=== PATIENT | male | born 1960 | race Caucasian/White ===

== ENCOUNTER 2025-04-27 05:13 | Day surgery (SDC) | payer OTHER, SELFPAY ==
[2025-04-02 10:43] LABS: Hematocrit 48.4 % (40-54); Hemoglobin 16.4 g/dL (13.0-16.5); Immature Granulocytes Count 0.040 X10^3/uL (0.0-0.0); Mean Corp Hgb Conc 33.9 g/dL (32-36); Mean Corpuscular Volume 92.5 fL (80-94); Mean Platelet Vol. 9.3 fl (6.2-12.0); NRBC Flagged by Analyzer 0 % (0-5); Platelet Count 317 K/mm3 (150-450); RBC Distribution Width CV 11.9 % (11.6-14.6); RBC Distribution Width SD 40.8 fl (35.1-43.9); Red Blood Count 5.23 M/mm3 (4.6-6.2); White Blood Count 9.6 K/mm3 (4.4-11.0)
[2025-04-02 11:24] LABS: Magnesium 2.5 mg/dL (1.5-2.2)
[2025-04-02 11:28] LABS: Albumin, Serum 4.5 g/dL (3.4-4.8); Anion Gap 11 (5-15); BUN 16 mg/dL (4-19); BUN/Creat Ratio 15.0 RATIO (10-20); Calcium,Total 9.8 mg/dL (7.6-11.0); Carbon Dioxide 24.5 mmol/L (21.0-32.0); Chloride 105 mmol/L (98-108); Glucose 97 mg/dL (70-99); Potassium 4.5 mmol/L (3.3-5.1)
--- NOTE | 2025-04-22 17:09 | HP.PCM_ITS ---
History and Physical History and Physical? Patient Name: Javi Echevarria : 1960From:? LAURA PERALTA PA-C? DATE OF PRE-OPERATIVE EXAM: 04/22/2025 DATE OF SURGERY:? 04/27/2025 SCHEDULED PROCEDURE:? Direct anterior right total hip arthroplasty HISTORY OF PRESENT ILLNESS: Preoperative history and physical exam was performed on April 22, 2025.? This is a 65-year-old male who has had ongoing pain for the past 5-6 months.? Pain has been going on in the groin radiating into the thigh and down the leg.? He does experience some sciatica and buttock pain.? Pain can reach 10/10 at times.? He has been using occasional cane.? His pain has been constant.? Pain is increased with lying down and walking.? He has difficulty with activities of daily living including housework and leisure activities that require walking.? Patient has attempted ibuprofen with no significant relief.? Patient did have an MRI which did confirm avascular necrosis.? There is known history of substantial alcohol use in the past.? Patient has obtain surgical clearance from the primary care provider Dr. Simona Lowe.? Patient has medical history for hypertension, hypercholesterolemia, posttraumatic stress disorder, anxiety area denies past history of DVT or pulmonary embolism.? Patient has been following our nutrition protocol.? After failing conservative measures and discussing all treatment options was Dr. Rey Lugo, the patient does wish to proceed with a direct anterior right total hip arthroplasty. REVIEW OF SYSTEMS: Review Of Systems: Constitutional: Denies change in appetite, fever and weight change. Cardiovasular: Denies chest pain, heart murmur and irregular heartbeat. Respiratory: Denies cough, pneumonia, shortness of breath, tuberculosis and wheezing. Gastrointestinal: Denies constipation, diarrhea, heartburn, nausea, rectal itching, bloody stools and vomiting. Genitourinary: Denies urinary symptoms. Musculoskeletal: Reports gait disturbance and pain, but denies leg swelling, trouble walking and weakness. Skin: Denies Raynaud's, history of shingles and tattoo. Neurological: Reports numbness/tingling but denies ambulatory dysfunction, dizziness and tremor. Psychiatric: Reports history alcohol abuse disorder, anxiety and PTSD, but denies insomnia and stress Hematologic/Lymphatic: Denies anemia, bleeding/bruising tendency and past transfusion. Reviewed and updated. PAST MEDICAL HISTORY: Advance Care Plan: No Advance Directives Effective Date: 02/13/2024 Past Medical History: Medical Problems: Arthritis, High Blood Pressure, Hypercholesterolemia, Covid-19 Vaccine, Posttraumatic stress disorder, Anxiety ostenoecrosis - previous alcohol use?? Accidents: Sports Related Injury - (2003) & (2009) knee arthroscopy Surgical Hx: Kidney Stones - (2009) Knee Arthroscopy Lt, Knee Arthroscopy Rt Knee Replacement LT - (05/06/2024) ROBOTIC ASSISTED DR. LUGO AT [facility] Anesthesia Complications: None Assistive Devices: Glasses, Cane Reviewed and updated. SOCIAL HISTORY: Social History: Marital: .Occupation: Retired.Work Status: Retired.Hand Dominance: Right-handed. Personal Habits:? Cigarette Use: Former.Smokeless Tobacco: Current Smokeless Tobacco User.E-Cigarette Use: Never used.Alcohol: Currently consumes alcohol - in remission from alcohol abuse .Drug Use: Denies Use.Enjoy Exercising: Exercises 1-3 x/month. Reviewed and updated. VITALS: Ht: 68.5 Wt: 194lb Wt k.998 BMI: 29.1 BP: 128/70 Pulse: 77 Resp: 17 T: 97.7 T: 36.5C Pain Level: 6/10 O2SatR: 97 ALLERGIES: No Known Drug Allergy? MEDICATIONS: Oxycodone HCL 5 mg 1-2 tablets by mouth every 4 hours as needed, Ondansetron HCL 4 mg 1 tablet by mouth every 8 hours as needed for nausea, Famotidine 20 mg 1 tablet by mouth every day, Mupirocin 2 % use qtip and apply inside each nostril twice a day until the day of surgery, Meloxicam 7.5 mg 1 by mouth twice a day, Beet Root 500 mg daily, Magnesium 300 mg daily, Vitamin D 50 mcg (1999 Ut) 1 by mouth 5 days a week, Amlodipine Besylate 10 mg 1 by mouth every day PRE-OP EXAM:? General appearance:NORMAL? ? ? Other: Eyes: Conjunctivae and lids: NORMAL? Pupils: ERR Ears, Nose, Mouth, and Throat: NORMAL? Other: Inspection of lips, teeth and gums: NORMAL? ?Other: Neck: Examination of neck: no masses noted. Respiratory: Assessment of respiratory effort: NORMAL? ?Other: ?Auscultation of lungs: clear to auscultation no wheezes, rhonchi or rales. Cardiovascular:? Auscultation of heart: regular rate and rhythm, no murmurs, gallops or rubs. PHYSICAL EXAMINATION: Patient walks with an antalgic gait favoring his right side.? Right hip is without erythema.? Patient has 15 contracture right hip.? Internal rotation neutral, external rotation 15, flexion approximately 80.? 3/5 strength secondary to pain.? Tenderness to palpation along the lateral hip greater trochanteric region.? Sensation intact to light touch. IMAGING STUDIES: Previous x-rays of the right hip reveal joint space narrowing, subchondral sclerosis, osteophyte formation consistent with severe stage IV bone on bone erosive osteoarthritis.? There is some collapse of the femoral head with characteristics concerning for avascular necrosis in the weightbearing area.? MRI was ordered which did confirm avascular necrosis likely related to substantial previous alcohol use. IMPRESSION: 1.? Right hip osteoarthritis with avascular necrosis 2.? Hypertension 3.? Hypercholesterolemia 4.? Posttraumatic stress disorder 5.? Anxiety 6.? Overweight with BMI 29.1 PLAN: Dr. Rey Lugo did discuss and review with the patient all treatment options including surgical versus nonsurgical options.? I will continue plan established by Dr. Rey Lugo.? Patient does wish to proceed with the above-stated procedure.? Potential risks, benefits, and complications of the procedure were discussed in detail including but not limited to , infection, nerve and blood vessel damage, persistent pain, numbness, tingling, paresthesias, blood clot, pulmonary embolism, and requirement for possible further surgery.? The patient expressed full understanding and has no further questions for the doctor.? Patient does agree to proceed with the above-stated procedure and has signed the surgery consent form. POST-OP MEDICATION PLAN: Pain Medications: At the preoperative visit patient was given the following medications: Doxycycline, famotidine, Zofran, and oxycodone.? Patient currently takes meloxicam.? He was instructed to car pick up driver extra strength Tylenol, aspirin 81 mg, and senna.? Patient did test positive for staph in which he will use doxycycline for 2 weeks postoperatively.? He was instructed he is more sensitive to the sunlight and should take appropriate precautions.? Also recommended probiotic while on the antibiotic.? Patient will continue to follow our nutrition protocol.? He will bring his walker to the hospital. DVT Prophylaxis Plan:? Aspirin 81 mg twice daily for 4 weeks postoperatively.? Denies past history of DVT or pulmonary embolism.? Patient will continue MY hose for 2 weeks postoperatively. This dictation was created using voice recognition software. Phonetic and/or grammatical errors may exist. ___? I have re-examined the patient.? There are no clinical changes since date of exam. ___? See progress notes for changes. ___? Dictated on admission Date: ? ? ?Time: Signature:
[2025-04-27] VITALS (16 sets, daily range): BP systolic 82–121; BP diastolic 50–83; PULSE 49–76; RESP 14–18; TEMP 36–36.8; O2SAT 95–100; BMI 28.9
[2025-04-27] MEDS: LR 1,000 ML - BOLUS PREOP 999 ML IV (06:14)
[2025-04-27] MEDS: Magnesium 1 GM over 15 mins IV (06:15)
[2025-04-27] MEDS: Vancomycin HCl 1,500 MG in 0.9% Normal Saline (500mL Bag) 500 ML 167 MG IV (06:23)
--- NOTE | 2025-04-27 06:30 | RAD_ITS ---
PROCEDURE: HIP MIN 2 VIEWS (PORTABLE); O.R. FLUORO FOR C-ARM 04/27/2025 REASON FOR EXAM: ANTERIOR TOTAL HIP RT TECHNIQUE: HIP MIN 2 VIEWS (PORTABLE); O.R. FLUORO FOR C-ARM. Fluoroscopy time: 8 seconds. Dose: 1.26 mGy. COMPARISON: None provided RAD/Hip Min 2 Views (Portable) IMPRESSION: Intraoperative fluoroscopy was performed for right hip arthroplasty. 5 fluoros copic images were also obtained. Reading Location: [address]
--- NOTE | 2025-04-27 06:30 | RAD_ITS ---
PROCEDURE: HIP MIN 2 VIEWS (PORTABLE); O.R. FLUORO FOR C-ARM 04/27/2025 REASON FOR EXAM: ANTERIOR TOTAL HIP RT TECHNIQUE: HIP MIN 2 VIEWS (PORTABLE); O.R. FLUORO FOR C-ARM. Fluoroscopy time: 8 seconds. Dose: 1.26 mGy. COMPARISON: None provided RAD/O.R. Fluoro for C-Arm IMPRESSION: Intraoperative fluoroscopy was performed for right hip arthroplasty. 5 fluoros copic images were also obtained. Reading Location: [id number]
--- NOTE | 2025-04-27 06:42 | PRE.ANES_ITS ---
ASA Classification* ASA Classification ASA Classification: 2 Assessment & Plan Anesthesia* Anesthesia Assessment Anesthesia Assessment: Discussed sedation and/or anesthesia options, risks, benefits, and alternatives with patient/parents/legal guardian/POA. Questions invited. The patient/parents/legal guardian/POA seems to understand and agrees to proceed with anesthesia plan. Reviewed the physical assessment, medical history, allergy history and patient home medications list prior to surgery/procedure/anesthetic and documented any changes. Performed airway and anesthesia risk assessments. Anesthesia Type Anesthesia Type: Spinal Anesthesia Focused Assessment* Temperature: 98.2 F Pulse Rate: 66 Blood Pressure: 121/83 Respiratory Rate: 16 Pulse Ox: 99 Airway Assessment Mouth opens: >3 cm Mallampati Score: II Labs Anesthesia Preop lab: CBC WBC 9.6 K/mm3 (4.4-11.0) 04/02/25 10:04/02/25 RBC 5.23 M/mm3 (4.6-6.2) 04/02/25 10:04/02/25 Hgb 16.4 g/dL (13.0-16.5) 04/02/25 10:04/02/25 Hct 48.4 % (40-54) 04/02/25 10:04/02/25 Plt Count 317 K/mm3 (150-450) 04/02/25 10:04/02/25 CHEMISTRY Potassium 4.5 mmol/L (3.3-5.1) 04/02/25 10:04/02/25 Sodium 140 mmol/L (133-145) 04/02/25 10:04/02/25 Magnesium 2.5 mg/dL (1.5-2.2) H 04/02/25 10:04/02/25 BUN 16 mg/dL (4-19) 04/02/25 10:04/02/25 Creatinine 1.08 mg/dL (0.70-1.20) 04/02/25 10:04/02/25 Glucose 97 mg/dL (70-99) 04/02/25 10:04/02/25 POC Glucose 70 mg/dL (74-106) L 04/27/25 06:01 04/27/25 COAG Pre-Assessment Diagnosis/Proposed Procedure Planned Operative Procedure(s): TOTAL HIP ANTERIOR APPROACH RIGHT Anesthesia History Anesthesia History - printer assistant: Anesthesia History - printer assistant Hx Hospitalization No 03/31/25 10:16 Any Problems With Anesthesia No 03/31/25 10:16 Cholinesterase deficiency No 03/31/25 10:16 You/Your Family Experience No 03/31/25 10:16 fever (hyperthermia) with Relationship Recent Exposure to Contagious No 04/27/25 06:02 Disease Does patient have nerve No 03/31/25 10:16 stimulator Patient instructed to have device shut off --Does patient have Pacemaker No 04/27/25 06:04 or ICD? When Was Last Pacemaker Check QUESTION #4 FULL TEXT: You/Your Family Experience fever (hyperthermia) with Anesthesia Last Oral Intake Last Oral intake: Last Oral Intake NPO since 03:30 04/27/25 06:04 Meds taken in AM with sips of Yes 04/27/25 06:04 water? Meds patient instructed to take am of surgery PONV PONV - printer assistant: PONV - printer assistant Female No 03/31/25 10:16 HX of Motion Sickness No 03/31/25 10:16 HX of N/V After Surgery No 03/31/25 10:16 Non-Smoker No 03/31/25 10:16 Duration of Surgery greater Yes 03/31/25 10:16 than 60 minutes Number of Risk Factors 1 03/31/25 10:16 PONV Score Low Risk 03/31/25 10:16 Height & Weight Height & Weight: Anesthesia: Height & Weight Height 5 ft 9 in 04/27/25 06:04 Weight: 88.904 kg 04/27/25 06:04 Body Mass Index (BMI) 28.9 04/27/25 06:04 Respiratory Assessment Respiratory Assessment - printer assistant: Respiratory Tract Infection Hx - printer assistant Hx Respiratory Tract Infection No 03/31/25 10:16 STOP Sleep Apnea STOP Sleep Apnea - printer assistant: STOP Sleep Apnea - printer assistant Hx Hypertension Yes: CONTROLLED WITH MED 03/31/25 10:16 Hx Sleep Apnea No 03/31/25 10:16 CPAP BIPAP Do you snore loudly (louder No 03/31/25 10:16 than talking or can be heard Do you often feel tired/ No 03/31/25 10:16 fatigued/ sleepy during daytime? Has anyone observed you stop No 03/31/25 10:16 breathing during sleep? STOP Results Negative 03/31/25 10:16 QUESTION #5 FULL TEXT : Do you snore loudly (louder than talking or can be heard through closed doors)? 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 Specify any problems Hx of Preganancy in last 3 N/A 03/31/25 10:16 Months Nurse Filling Out Transfusion DSCHRIBER 03/31/25 10:16 & Questions: Date: 03/31/25 03/31/25 10:16 Time: 10:18 03/31/25 10:16 Patient unable to answer at this time (ie. confused, unrespo /Reproduction History /Reproductive History - printer assistant: /Reproductive Hx- printer assistant Hx Now No 03/31/25 10:16 Gestational Age (in weeks): EDC: Hx Hx Para Hx Section SAB No 03/31/25 10:16 Active Medications Active Medications: Current Medications Generic Name Dose Route Start Last Admin Trade Name Freq PRN Reason Stop Dose Admin Acetaminophen 1,000 mg 04/27/25 07:30 04/27/25 06:19 Acetaminophen 500 Mg Tablet PO 04/27/25 07:31 1,000 mg PREOP ONE Administration Celecoxib 400 mg 04/27/25 07:30 04/27/25 06:18 Celecoxib 200 Mg Capsule PO 04/27/25 07:31 400 mg PREOP ONE Administration Sodium Chloride 77.9 ml/ 0 ml 04/27/25 07:30 Ropivacaine 200 mg/ OPERA.SITE 04/27/25 07:31 Epinephrine HCl 0.6 mg/ INTRAOP ONE Ketorolac Tromethamine 30 mg/ Morphine Sulfate 5 mg Dexamethasone Sodium Phosphate 10 mg 04/27/25 07:30 Dexamethasone 10 Mg/Ml Vial IV 04/27/25 07:31 INTRAOP ONE Gabapentin 600 mg 04/27/25 07:30 04/27/25 06:18 Gabapentin 600 Mg Tablet PO 04/27/25 07:31 600 mg PREOP ONE Administration Lactated Ringer's 1,000 mls @ 999 mls/hr 04/27/25 07:30 04/27/25 06:14 IV 04/27/25 08:30 999 mls/hr .Q1H1M NINI Administration Cefazolin Sodium 2 gm/ Sodium 110 mls @ 150 mls/hr 04/27/25 07:30 Chloride IV 04/27/25 08:13 INTRAOP ONE Vancomycin HCl 1,500 mg/ 530 mls @ 167 mls/hr 04/27/25 07:30 04/27/25 06:23 Sodium Chloride IV 04/27/25 10:40 167 mls/hr PREOP ONE Administration Tranexamic Acid 1,000 mg/ 110 mls @ 660 mls/hr 04/27/25 07:30 Sodium Chloride IV 04/27/25 07:39 INTRAOP ONE Tranexamic Acid 1,000 mg/ 110 mls @ 660 mls/hr 04/27/25 07:30 Sodium Chloride IV 04/27/25 07:39 INTRAOP ONE Lactated Ringer's 1,000 mls @ 999 mls/hr 04/27/25 07:30 IV 04/27/25 08:30 .Q1H1M NINI Lactated Ringer's 1,000 mls @ 125 mls/hr 04/27/25 07:30 IV 04/27/25 15:29 .Q8H NINI Magnesium Sulfate 1 gm/ 102 mls @ 408 mls/hr 04/27/25 07:30 04/27/25 06:15 Dextrose IV 04/27/25 07:44 408 mls/hr INTRAOP ONE Administration Insulin Human Lispro 1 - 6 unit 04/27/25 07:30 Insulin Lispro 100 Unit/Ml Insuln.Pen SC Q4H PRN PRN BG>/= 180, SEE PROTOCOL Protocol PFSH Medical History Wears glasses Wears contact lenses PTSD (post-traumatic stress disorder) Ambulates with cane Arthritis High cholesterol History of diverticulitis Snuff user History of pain when walking Hypertension Home Medications ?Medication ?Instructions ?Recorded ?Last Taken ?Type amlodipine 10 mg tablet 10 mg PO DAILY 03/31/2505/15 03:30 History cholecalciferol (vitamin D3) 125 125 mcg PO DAILY 03/2204/26/25 History mcg (5,000 unit) tablet (Vitamin D3) magnesium 250 mg tablet 250 mg PO DAILY 03/31/2504/15 History meloxicam 7.5 mg tablet 7.5 mg PO BID 03/31/2504/20 History milk thistle 175 mg capsule 175 mg PO TID 03/31/2504/15 History red beet 500 mg capsule 1,000 mg PO TID 03/31/2504/15 History Allergy/AdvReac Type Severity Reaction Status Date / Time No Known Allergies Allergy Verified 04/27/25 05:58 Surgical History Hx of colonoscopy Hx of lithotripsy Hx of total knee arthroplasty Hx of arthroscopy of right knee Hx of arthroscopy of left knee Social History Smoking Status: Current every day smoker tobacco type: smokeless tobacco Review of Systems (Anesthesia) ROS Narrative System reviewed and no additional complaints, except as documented.
--- NOTE | 2025-04-27 07:30 | HIP_PTH ---
PATIENT: MANISHA MAHMOOD LOC: [facility] [place] U#:[id number] AGE/SX: 65/M ROOM: RE04/27/[address]: Dr. Rey Lugo MD : 1960 BED: DIS: 04/27/2025 SPEC #: [id number] RECD: 04/27/25 10:24 STATUS: YANELIS REEva #: [id number] REJI: 04/27/25 07:[address]: Rey Lugo DEPT: SURGICAL PATHOLOGY RECD BY: Lisandro Denney ENTERED: 04/27/25 11:34 SP TYPE: TOTAL HIP OTHR DR: Dr. Simona Lwoe MD Tissues: A - Hip, NOS Procedures: Decalcification bone/plaque Surgery Specimen Level III HEADER OPERATION: ERAS, total hip anterior approach PRE-OP DIAGNOSIS: Right total hip arthroplasty TISSUE SUBMITTED: A- Right hip bone and tissue MICROSCOPIC DIAGNOSIS A. Right hip, total hip arthroplasty: - Focal necrotic bone consistent with avascular necrosis. - Osteoarthritic reactive/degenerative changes. MICROSCOPIC DESCRIPTION Slides are reviewed. GROSS DESCRIPTION Received in formalin labeled with the patient's name and date of . Designated as right hip-bone and tissue is a 5.0 x 4.6 x 4.3 cm slightly irregular femoral head with detached femoral neck, 1.2 cm in length by 4.0 cm in diameter. The femoral head has a shelley and granular articular cartilage and mild to moderate peripheral osteophyte formation. There is also a 0.7 x 0.6 cm circular defect along the periphery that appears iatrogenic in nature. Definitive eburnation is not grossly appreciated. Sectioning reveals shelley-yellow, focally erythematous medullary bone with a 3.8 x 1.3 cm subchondral, pale wedge-shape with a focally detached overlying articular cartilage (suspicious for necrosis). Also received within the container is a 7.0 x 5.2 x 1.4 cm aggregate of shelley-pink to red bone and tissue fragments. Reading Coach sections of the pale wedge shaped area are submitted in 2 cassettes, following decalcification. SD 04/27/2025 CPT:[id number]
[2025-04-27] MEDS: TXA 1000mg in NS100 100ml (IVPB at Closure) 660 MG IV (08:00)
[2025-04-27] MEDS: Cefazolin 1 GM/50 ML BAG IV ×2 (08:00→14:28)
[2025-04-27] MEDS: Cefazolin 2 GM in 0.9% Normal Saline (100mL Bag) 100 ML IV (08:00)
[2025-04-27] MEDS: JPS (Morphine 10mg/ml) OPERA.SITE (09:01)
[2025-04-27] MEDS: TXA 1000mg in NS100 100ml (IVPB at Incision) 660 MG IV (09:01)
--- NOTE | 2025-04-27 09:05 | OP.PCM_ITS ---
Operative Report (Standard) Operative Information Date of Procedure: 04/27/25 Pre-Operative Diagnosis: Right hip primary osteoarthritis Post-Operative Diagnosis: Right hip primary osteoarthritis Surgery/Procedure Performed: Right direct anterior total replacement sausage smoker: Yes Taxation Economist: Ana Lema Tasks completed by list of first job ideas: Other (See body of operative report) Additional zoning assistant?: No Type of Anesthesia: Spinal RN Documented Start/Stop Times: Operation Date: 04/27/25 07:30 Case Time Into Pre-Op 04/27/25 05:35 Into Room 04/27/25 07:46 Anesthesia Start 04/27/25 08:09 Procedure Start 04/27/25 08:11 Procedure End 04/27/25 10:08 Anesthesia End 04/27/25 10:10 Out of Room 04/27/25 10:10 Into Recovery 04/27/25 10:15 Procedure Start Time: 08:11 Procedure Stop Time: 10:08 Select all DRAINS/GRAFTS/IMPLANTS that apply: Prosthetic device Prosthetic device details: See body of operative report Special Medications: 2 g Ancef, 1 g TXA at incision, 1 g TXA closure, 10 mg Decadron, joint cocktail (5 mg Duramorph, 30 mL of 0.5% Ropivicaine, 1000 units of epinephrine, 30 mg of Toradol) Estimated Blood Loss: 250 mL Fluids Replaced: 1000 mL crystalloid Specimen collected: Yes Description of specimen(s) removed: Bony callus Description of surgery: Components used: 1. Accolade 2 Volodymyr femoral stem size 5/127 2. Chelan trident 2 acetabular shell size 56 mm 3. Chelan X3 polyethylene F 4. Chelan Biolox delta 36 mm, -2.5 mm femoral head Brief history operative indications: 65yo male who failed conservative measures for their hip osteoarthritis. X-rays were consistent with osteoarthritis including joint space narrowing, osteophyte formation and subchondral cysts. Total hip replacement was discussed with the patient with risks and benefits including but not limited to blood loss, DVTs, PEs, neurovascular damage, dislocation, general risks of anesthesia including loss of life. Patient demonstrated an understanding medical clearance is obtained the patient was consented for surgery. Procedure: On the date of procedure the patient's right hip was marked in the preoperative area. Patient was then taken back to the operating room where anesthesia assumed control of the C-spine and airway and administered anesthetic. Patient was transferred to the operating table and placed in the supine position. The hips were placed at the break of the bed and a sacral bump was placed. The right lower extremity was then prepped out in a sterile fashion using chlorhexidine while the surgeon scrubbed. The PA was vital in the positioning of the patient. Upon reentering the room the right lower extremity was draped in the standard orthopedic fashion and the incision was marked. A timeout was called and everyone agreed upon the side, the site, the procedure be performed, antibody given, and patient's identity. At this time incision was made through skin, subcutaneous tissue, and fat down to fascia. The fascia was then incised and the TFL was retracted laterally. A retractor was placed on the lateral border of the femoral neck. Attention was directed to the inferior portion of the approach and all crossing vessels were identified and appropriately coagulated. A retractor was then placed on the medial portion of the femoral neck. The anterior capsule was then cleared of all soft tissue and then H shaped capsulotomy was made. The retractors were then placed inside the capsule. The femoral neck was identified and a cleanup cut was made. At this time a power corkscrew was used to remove the femoral head. Attention was then turned toward the acetabulum where the soft tissues were appropriately retracted and the acetabulum was sequentially reamed to 56 mm. A 56 mm cup was then selected and impacted into place. Acetabular liner was impacted into place and locking mechanism was verified. The position of the acetabular cup was then verified under live fluoroscopy. Attention was then turned to the femur. Soft tissue releases on the medial and lateral femoral neck were appropriately done, the leg was externally rotated and lateralized. A Jaramillo retractor was placed medially and proximally to the greater trochanter this allowed appropriate visualization and exposure of the femoral canal. Rongeour was then used to remove excess lateral bone. A canal finder and entry broach were used to open the proximal canal. Once we verified we were down the femoral canal we subsequently broached up to a size 5 femur. The appropriate neck was placed in the previously selected head was trialed with a -2.5 mm neck. Traction was pulled and the hip was reduced with internal rotation. Once it was appropriately reduced and stability was checked. There was minimal shuck, equal leg lengths and appropriate stability with hyperextension and external rotation as well as with 90? flexion and internal rotation. Fluoroscopy was then also used to verify the position of the components and leg lengths using the contralateral side for comparison. The trial components were then dislocated the proximal femur was again exposed and the components were removed from the wound. The final components were verified and opened. The wound was copiously irrigated out with normal saline. The acetabulum was checked for any residual debris. The final components were placed and impacted. Traction and internal rotation were again used to reduce the hip. After adequate reduction the hip remained stable with appropriate leg lengths. The final components were once again checked with live fluoroscopy and were found to be satisfactory. The wound was then copiously irrigated with normal saline once more, and hemostasis was obtained. Closure was then done using #1 Vicryl runner to close the fascia. A 2-0 vicryl interuppted sutures were used to close the subcutaneous skin. A 3-0 Monocryl and Steri-Strips were used for final skin closure. A Silverlon dressing was placed. Patient was awakened by anesthesia and transferred to the [facility]. Patient was then transferred to the PACU for recovery. Postoperative plan: Patient will get 24 hours postop antibiotics. Patient will get in-house physical therapy and will be weight-bear as tolerated. Patient will follow up in office in 2 weeks for a wound check and x-rays. Aspirin 81 mg twice daily. Patient will be placed on doxycycline 100 mg p.o. twice daily postoperatively due to positive staph cultures During the course of the procedure the physician supervisor assembly department (PE) played a vital role. Their intimate knowledge of my steps in the procedure aided in safe and expedient completion of the procedure. The PE played a vital rolls in positioning particularly in obtaining the appropriate positioning of the sacral bump. The PE was also vital in the retraction of soft tissues during the exposure and especially the femoral work as this is a vital part of the procedure to prevent complications and fractures. The PE was also vital and protecting soft tissues during times of bony cuts and reaming. He also played a vital role in closure with my direct supervision. The PE was also important during reduction and dislocation of the joint and trials intraoperatively. Surgical Findings: Stable hip. Stage IV osteoarthritis. Equal leg lengths Complications Complications: No
[2025-04-27] MEDS: LR 1,000 ML - BOLUS POSTOP 999 ML IV (10:30)
--- NOTE | 2025-04-27 10:30 | RAD_ITS ---
PROCEDURE: HIP MIN 2 VIEWS (PORTABLE) 04/27/2025 REASON FOR EXAM: POST OP TECHNIQUE: HIP MIN 2 VIEWS (PORTABLE) COMPARISON: Intraoperative images earlier the same day. RAD/Hip Min 2 Views (Portable) IMPRESSION: Two-view postoperative right hip including a low centered AP pelvis demonstrate presence of a total knee prosthesis without apparent complication noted. No fracture site is seen. Reading Location: [id number]
[2025-04-27] MEDS: LR 1,000 ML - 125 ML/HR (POST BOLUS) POST OP IV (11:27)
--- NOTE | 2025-04-27 13:23 | PCM.POST.ANE ---
Anesthesia: Postop Eval I Current Vital Signs Temperature: 96.8 F Pulse Rate: 70 Blood Pressure: 110/80 Respiratory Rate: 18 Pulse Ox: 98 Oxygen Delivery Method: Room Air Assessment Airway patent: Yes Spontaneous unlabored respirations: Yes Mental status: Awake nausea: No Vomiting: No Anesthesia Complication: No Fluid Hydration Crystalloid volume administer (ml): 1,800 Total IV fluid infused: 1,800 Progress Note Anesthesia document: Postop Eval 1 completed: Yes
--- NOTE | 2025-04-27 15:09 | PCM.POST.ANE ---
Anesthesia: Postop Eval I Current Vital Signs Temperature: 97 F Pulse Rate: 76 Blood Pressure: 120/75 Respiratory Rate: 16 Pulse Ox: 95 Assessment Airway patent: Yes Spontaneous unlabored respirations: Yes Mental status: Awake nausea: No Vomiting: No Anesthesia Complication: No Fluid Hydration Crystalloid volume administer (ml): 600 Total IV fluid infused: 600 Progress Note Anesthesia document: Postop Eval 1 completed: Yes
--- NOTE | 2025-04-27 15:11 | PCM.POSTANE2 ---
Anesthesia Postop Eval I Sum Postop Eval Completion status Anesthesia document: Postop Eval 1 completed: Yes Anesthesia Postop Eval I Summary Anesthesia Postop Eval I Summary: Anesthesia Postop Eval I: Assessment Summary Airway patent Yes 04/27/25 15:10 Spontaneous unlabored Yes 04/27/25 15:10 respirations Mental status Awake 04/27/25 15:10 nausea No 04/27/25 15:10 Vomiting No 04/27/25 15:10 Anesthesia Postop Eval I: Fluid Summary Crystalloid volume administer 600 04/27/25 15:10 (ml) Colloids volume administered ( ml) Blood Product volume administered (ml) Total IV fluid infused 600 04/27/25 15:10 Anesthesia Postop Eval I: Summary Notes Anesthesia Complication No 04/27/25 15:10 Anesthesia Complication Comment: Post-operative progress note Anesthesia: Postop Eval II Evaluation Mental status: Awake Pain Level: 0 nausea: No Vomiting: No
== END 2025-04-27 16:03 | disposition home or self-care (01) ==
LOC: SDC 05:13 → AC 05:18
PROVIDERS: Anesthesiology; PCP Student in an Organized Health Care Education/Training Program; Referring Provider Specialist; Visit Provider Specialist
PROC: (CPT 27284; principal; 2025-04-27 07:05)
DX: M16.11 Unilateral primary osteoarthritis, right hip (principal); I10 Essential (primary) hypertension; E78.00 Pure hypercholesterolemia, unspecified; F41.9 Anxiety disorder, unspecified; F17.220 Nicotine dependence, chewing tobacco, uncomplicated; E66.3 Overweight; Z68.29 Body mass index [BMI] 29.0-29.9, adult; Z79.899 Other long term (current) drug therapy
CPT/HCPCS: 27130; 01214; 36415; 73502; 76000; 80048; 82040; 82962; 83735; 85025; 87077; 87081; 88304; 88305; 88311; 93005; 97162; C1776; J2405; J3475